=== PATIENT | female | born 1960 | race Caucasian/White ===

== ENCOUNTER → 2017-01-03 | Outpatient (CLI) | payer OTHER ==
--- NOTE | 2017-01-03 17:30 | DX ---
Right Knee, 5 Views Indication: Fall. Pain.. Technique: AP, obliques lateral, and Merchant views. Comparison: None Findings: The normally mineralized bones are anatomically aligned. No acute fracture. Joint spaces ar e well preserved. Minimal osteoarthritis is evidenced by small osteophytes emanating off the medial t ibiofemoral joint line, intercondylar notch, and superior pole of the patella. The patella is normall y aligned on the Merchant view. Trace effusion. Impression: 1. Trace effusion. No acute fracture. 2. Minimal osteoarthritis.
== END ==
LOC: BMCIMAGING 16:47
PROVIDERS: ATTEND Internal Medicine
DX: M17.11 Unilateral primary osteoarthritis, right knee (principal)

== ENCOUNTER → 2017-06-18 | Outpatient (CLI) | payer OTHER | LOC: FIMAGING 15:24 | PROVIDERS: ATTEND Obstetrics & Gynecology | DX: Z12.31 Encounter for screening mammogram for malignant neoplasm of breast (principal) | CPT/HCPCS: G0202 ==

== ENCOUNTER → 2018-06-30 | Outpatient (CLI) | payer OTHER | LOC: FIMAGING 09:32 | PROVIDERS: ATTEND Obstetrics & Gynecology | DX: Z12.31 Encounter for screening mammogram for malignant neoplasm of breast (principal) ==